=== PATIENT | female | born 1960 | race Caucasian/White ===

== ENCOUNTER 2020-12-17 12:55 | Day surgery (SDC) | payer MEDICARE, OTHER ==
[~2020-12-17] VITALS: Ht 152.4 cm; Wt 36.4 kg
[2020-12-17] MEDS ORDERED: ZANAFLEX2 MG PO (13:56)
[2020-12-17] MEDS ORDERED: BACTRIM DS 8001 TAB PO (13:56)
[2020-12-17] MEDS ORDERED: XARELTO10 MG PO (13:58)
[2020-12-17] MEDS ORDERED: LIORESAL 1010 MG/TAB PO (13:59)
[2020-12-17] MEDS ORDERED: FLORINEF ACETA0.1 MG PO (14:00)
[2020-12-17] MEDS ORDERED: UREX1 GM (14:00)
[2020-12-17] MEDS ORDERED: LIPITOR 10MG10 MG PO (14:01)
[2020-12-17] MEDS ORDERED: NEURONTIN600 MG/TAB PO (14:02)
[2020-12-17] MEDS ORDERED: DETROL LA 2 MG2 MG PO (14:03)
[2020-12-17] MEDS ORDERED: LEXAPRO 10MG10 MG PO (14:04)
[2020-12-17] MEDS ORDERED: NEXIUM 40MG40 MG PO (14:04)
[2020-12-17] MEDS ORDERED: PROAMATINE 5MG T5 MG PO (14:06)
[2020-12-17] MEDS ORDERED: VITAMIN C500 MG PO (14:08)
[2020-12-17] MEDS ORDERED: PERCOCET 325 MG1 TA2 PO (14:09)
[2020-12-17] MEDS ORDERED: TYLENOL 500MG500 MG PO (14:10)
[2020-12-17] MEDS ORDERED: BENADRYL25 M2 PO (14:10)
[2020-12-17] MEDS ORDERED: FLONASE NASAL S16 GM (14:13)
[2020-12-17] MEDS ORDERED: cholecalciferol (vit (14:15)
[2020-12-17 14:25] VITALS: BP 156/82; PULSE 55; TEMP 97.3
[2020-12-17 15:40] VITALS: BP 136/77; PULSE 72; TEMP 97.8
[2020-12-17 16:00] VITALS: BP 144/94; PULSE 58
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
== END 2020-12-17 17:35 | disposition home or self-care (01) ==
LOC: SDCO 12:55
DX: N21.0 Calculus in bladder (principal); N39.42 Incontinence without sensory awareness; N31.9 Neuromuscular dysfunction of bladder, unspecified; G82.50 Quadriplegia, unspecified; S14.105S Unspecified injury at C5 level of cervical spinal cord, sequela; K21.9 Gastro-esophageal reflux disease without esophagitis; F32.9 Major depressive disorder, single episode, unspecified; G89.29 Other chronic pain; Z20.822 Contact with and (suspected) exposure to COVID-19; V89.2XXS Person injured in unspecified motor-vehicle accident, traffic, sequela; Z96.0 Presence of urogenital implants; Z79.899 Other long term (current) drug therapy; Z79.01 Long term (current) use of anticoagulants
CPT/HCPCS: J0585; J0690; J2405; J2704; J3010